=== PATIENT | female | born 2000 | race African-American/Black ===

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

== ENCOUNTER 2024-02-01 01:48 | Emergency (ER) | payer MEDICAID ==
[~2024-02-01] VITALS: Ht 149.9 cm; Wt 68.0 kg
[~2024-02-01 01:48] MED LIST: IBUP-2028 MT
[2024-02-01 02:12] VITALS: BP 112/67; PULSE 76; RESP 16; TEMP 98.4; O2SAT 100
[2024-02-01 02:30] LABS: CLARITY URINE CLEAR (CLEAR); COLOR URINE YELLOW (YELLOW); GLUCOSE URINE NEGATIVE (NEGATIVE); KETONES URINE NEGATIVE (NEGATIVE); LEUKOCYTE ESTERASE URINE NEGATIVE (NEGATIVE); NITRITE URINE NEGATIVE (NEGATIVE); OCCULT BLOOD URINE 2+ (NEGATIVE); PH URINE 6.5 (4.5-8.0); PROTEIN URINE NEGATIVE (NEGATIVE); SPECIFIC GRAVITY URINE 1.024 (1.005-1.030); UROBILINOGEN URINE 0.2 E.U./dL (0.2-1.0)
[2024-02-01 04:18] LABS: RBC URINE 0-2 /hpf (0-2); SQUAMOUS EPITHELIAL CELL URINE 2+ /lpf (RARE/1+); WBC URINE 0-2 /hpf (0-2)
[2024-02-01 04:19] LABS: BACTERIA URINE 1+; CALCIUM OXALATE CRYSTALS URINE 2+ /lpf
== END 2024-02-01 05:11 | disposition home or self-care (01) ==
LOC: ER 02:10
DX: N93.9 Abnormal uterine and vaginal bleeding, unspecified (principal); Z53.21 Procedure and treatment not carried out due to patient leaving prior to being seen by health care provider
CPT/HCPCS: 81003; 81025

== ENCOUNTER 2024-02-05 02:44 | Emergency (ER) | payer MEDICAID ==
[~2024-02-05] VITALS: Ht 157.5 cm; Wt 72.0 kg
[2024-02-05 02:59] VITALS: BP 108/69; PULSE 72; RESP 16; TEMP 98.3; O2SAT 98
[2024-02-05 03:44] LABS: BASOPHILS % 1.1 % (0.0-2.0); EOSINOPHILS % 1.7 % (0.0-5.0); HEMATOCRIT. 35.1 % (36.0-48.0); HEMOGLOBIN. 11.5 g/dL (12.0-16.0); LYMPHOCYTES % 40.6 % (20.0-50.0); MEAN CORPUSCULAR HEMOGLOBIN 29.4 pg (28.0-32.0); MEAN CORPUSCULAR HGB CONC 32.7 g/dL (31.0-37.0); MEAN CORPUSCULAR VOLUME 89.9 fL (81.0-99.0); MEAN PLATELET VOLUME 8.3 fl (7.4-10.4); MONOCYTES % 8.5 % (2.0-8.0); NEUTROPHILS % 48.1 % (40.0-76.0); PLATELET 266 x1000/uL (130-400); RED CELL DISTRIBUTION WIDTH 14.6 % (11.6-14.6); WHITE BLOOD COUNT 5.5 x1000/uL (4.5-11.0)
[2024-02-05 03:47] LABS: CHLORIDE 108 mEq/L (98-107); POTASSIUM 3.6 mEq/L (3.5-5.1); SODIUM 140 mEq/L (136-145)
[2024-02-05 03:49] LABS: CALCIUM 9.7 mg/dL (8.7-10.4); CARBON DIOXIDE 24 mEq/L (21-32)
[2024-02-05 03:54] LABS: CREATININE 0.7 mg/dL (0.6-1.0); GLUCOSE 88 mg/dL (70-105); UREA NITROGEN BLOOD 6 mg/dL (9-23)
[2024-02-05 04:20] LABS: B-HCG QUANTITATIVE 10100 mIU/mL (<3)
== END 2024-02-05 09:13 | disposition home or self-care (01) ==
LOC: ER 02:44
DX: O20.0 Threatened abortion (principal); Z3A.01 Less than 8 weeks gestation of pregnancy
CPT/HCPCS: 36415; 76801; 80048; 84702; 85025; 86850; 86900; 99284